=== PATIENT | male | born 1980 | race Caucasian/White ===

== ENCOUNTER 2024-12-28 06:41 | Emergency (ER) | payer OTHER, SELFPAY ==
[2024-12-28 06:42] VITALS: BP 174/106
[2024-12-28 07:00] VITALS: BMI 31.9
--- NOTE | 2024-12-28 07:00 | ED.GENMED ---
History of Present Illness
<Abi Inman, DO - Last Filed: 12/28/24 10:08>
General
Chief Complaint: Dizziness
Time Seen by Provider: 12/28/24 06:46
<Joni Astudillo MD, Resident - Last Filed: 12/28/24 10:26>
General
Source: patient and significant other
History of Present Illness
History of Present Illness:
44 year old male with a past medical history of ADHD comes to the ED due to recent history of dizziness and increased sweatiness when he woke up this morning. He states that he was having mild symptoms when he went the bed last night and that they
were much worse this morning. Patient was looking at a few old houses yesterday and was smelling 'cat poop' since visiting those houses. Patient states that he has been feeling chills and sweating and has a mild headache. He vomiting in the car
while driving to the ED and has been dry heaving for a bit since.
Past History
<Joni Astudillo MD, Resident - Last Filed: 12/28/24 10:26>
Past History
ED Past Medical History: Psychiatric (ADHD)
ED Past Surgical History: Orthopedic (Achilles)
Social History
Tobacco: Vaping
Alcohol: Occasional
Drug: None
Review of Systems
<Joni Astudillo MD, Resident - Last Filed: 12/28/24 10:26>
Review of Systems
Allergies reviewed?: Yes
Constitutional: Reports chills
EENT: Reports no symptoms
Respiratory: Reports no symptoms
Cardiac: Reports no symptoms
ABD/GI: Reports nausea and vomiting
: Reports no symptoms
Musculoskeletal: Reports no symptoms
Skin: Reports no symptoms
Neurological: Reports dizzy and headache
Endocrine: Reports no symptoms
Hematologic/Lymphatic: Reports no symptoms
Psychiatric: Reports no symptoms
Phy Exam
<Joni Astudillo MD, Resident - Last Filed: 12/28/24 10:26>
General Physical Exam
General Presentation: mild distress
General Skin: warm and dry
General Habitus: normal
General Mental: alert
General Hydration: appears well hydrated
Eye Exam
Eye Exam: PERRL and EOMI
Eye Exam General: lateral nystagmus: left (Mild)
Cardiovascular Exam
Cardiovascular Exam: regular rate/rhythm, no edema and no murmur
Pulmonary Exam
Pulmonary Exam: lungs clear, no respiratory distress, no rales, no crackles and no wheezing
Gastrointestinal Exam
Gastrointestinal Exam: normal bowel sounds, non tender, soft and non distended
Neurological Exam
Neurological Exam: alert, oriented x3, no motor deficits and no sensory deficits
Course
<Abi Inman, DO - Last Filed: 12/28/24 10:08>
Orders/Labs/Results
Orders:
Orders
12/28/24 06:58
Electrocardiogram (*1) Stat
Reason for Study: Vertigo / Dizzy
EKG- Treatment ONCE
12/28/24 06:59
Ondansetron Injectable [Zofran] 4 mg IV NOW STA
12/28/24 07:00
IV Insert/Care/Rem.- Treatment PRN
0.9% Sodium Chloride 1000 ml [Nss] 1,000 ml IV BOLUS
12/28/24 07:05
CT Head W/o Iv Contrast Urgent
Comment:
Reason For Exam: dizziness
12/28/24 07:18
Complete Blood Count/With Diff Urgent
Comprehensive Metabolic Panel Urgent
12/28/24 08:21
Physical Therapy Consult [Pt Eval And Treat] Urgent
Treatment: Vestibular
Activity Level: Out of Bed-Early Mobility
12/28/24 09:28
Meclizine [Antivert] 12.5 mg PO NOW STA
Abnormal Lab Results
12/28/24
07:18
BUN 23 H mg/dl
(9-20)
Glucose 133 H mg/dl
(70-99)
12/28/24 07:18
12/28/24 07:18
Vital Signs
Initial and Last Documented VS:
Initial Vital Signs
Temp Pulse Resp BP Pulse Ox
97.3 F 66 20 174/106 98
12/28/24 06:42 12/28/24 06:42 12/28/24 06:42 12/28/24 06:42 12/28/24 06:42
Last Documented Vital Signs
Temp Pulse Resp BP Pulse Ox
97.3 F 56 11 132/81 100
12/28/24 06:42 12/28/24 10:00 12/28/24 09:00 12/28/24 10:00 12/28/24 10:00
<Joni Astudillo MD, Resident - Last Filed: 12/28/24 10:26>
Orders/Labs/Results
Orders:
Orders
12/28/24 06:58
Electrocardiogram (*1) Stat
Reason for Study: Vertigo / Dizzy
EKG- Treatment ONCE
12/28/24 06:59
Ondansetron Injectable [Zofran] 4 mg IV NOW STA
12/28/24 07:00
IV Insert/Care/Rem.- Treatment PRN
0.9% Sodium Chloride 1000 ml [Nss] 1,000 ml IV BOLUS
12/28/24 07:05
CT Head W/o Iv Contrast Urgent
Comment:
Reason For Exam: dizziness
12/28/24 07:18
Complete Blood Count/With Diff Urgent
Comprehensive Metabolic Panel Urgent
12/28/24 08:21
Physical Therapy Consult [Pt Eval And Treat] Urgent
Treatment: Vestibular
Activity Level: Out of Bed-Early Mobility
12/28/24 09:28
Meclizine [Antivert] 12.5 mg PO NOW STA
Abnormal Lab Results
12/28/24
07:18
BUN 23 H mg/dl
(9-20)
Glucose 133 H mg/dl
(70-99)
12/28/24 07:18
12/28/24 07:18
Vital Signs
Initial and Last Documented VS:
Initial Vital Signs
Temp Pulse Resp BP Pulse Ox
97.3 F 66 20 174/106 98
12/28/24 06:42 12/28/24 06:42 12/28/24 06:42 12/28/24 06:42 12/28/24 06:42
Last Documented Vital Signs
Temp Pulse Resp BP Pulse Ox
97.3 F 56 11 132/81 100
12/28/24 06:42 12/28/24 10:00 12/28/24 09:00 12/28/24 10:00 12/28/24 10:00
<Joni Astudillo MD, Resident - Last Filed: 12/28/24 10:26>
MDM/Problems Addressed
Differential Diagnosis Includes:
Vertigo, Exposure to mold, Dehydration
MDM/Problems Addressed:
Patient comes to the ED in some moderate distress complaining of dizziness and diaphoresis.
Will get CMP, CBC to check for any electrolyte abnormalities. Will give some IVF and Zofran for supportive therapy (already is feeling better)
Will get EKG to check for any cardiac abnormalities
Will get Head CT w/o IV contrast
Most likely related to him visiting old houses yesterday and being exposed to possible mold
CBC unremarkable, EKG shows possible first degree block but unremarkable.
Patient continues to not feel well, will consult physical therapy for vestibular exercise therapy
Physical Therapy evaluated patient and state he's doing much better. Negative testing for BPPV or vertigo. Patient able to ambulate without much dizziness
Will give dose of Meclizine and discharge patient if continues to feel better
Patient feeling much better and discharged with instructions regarding his dizziness and given a prescription for Meclizine
<Joni Astudillo MD, Resident - Last Filed: 12/28/24 10:26>
*Pulse Oximetry
SaO2: 98
Oxygen Mode of Delivery: Room air
Patient hypoxic: no
*Critical Care Note
Total Time (30-74mins, 75-104mins- exclusive of procedures): Not Applicable
ED Attending Note
<Abi Inman DO - Last Filed: 12/28/24 10:08>
ED Attending Note
Patient seen and examined by attending physician: Yes
I performed the substantive portion of visit, reviewed & personally made and approve the management plan that is documented in note by myself or MAGDA.: Yes
I performed a history and physical exam of patient and discussed management with resident, I reviewed resident's note and agree with documented findings and plan of care.: Yes
ED Attending Note:
44-year-old male without significant past medical history presenting to the emergency department for dizziness. 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 He was wearing a mask and notes some strange smells,
animal feces, dust. He reports that he felt fine when he went to sleep, mild headache. When he woke up this morning, felt an acute sense of dizziness, described as spinning. Notes that he initially had double vision with associated nausea,
vomiting, diaphoresis. Denies any prior history of vertigo. Denies any injury or trauma. Denies any recent illness or fever. Denies focal weakness or sensory deficits to his extremities. Denies chest pain or difficulty breathing. Vital signs
on arrival significant for high blood pressure.
On exam, patient is resting comfortably, no acute distress. Notes that the symptoms have somewhat improved when he is now sitting. Overall benign examination. Mild nystagmus when looking toward the right, reproduction of symptoms. Otherwise
pupils equal and reactive, extraocular movements intact. Normal strength and sensation bilaterally to all extremities. Normal cerebellar testing. Unremarkable cardiac and pulmonary exam. Normal TMs bilaterally. Suspect vertiginous component to
symptoms, given examination, description of symptoms, acute onset. Lower suspicion for acute central neurologic process. Plan for laboratory analysis, EKG, therapeutics with IV fluids/Zofran/meclizine
08:40 -patient's labs are unremarkable. CT brain negative. He notes minimal improvement of his symptoms. Will consult physical therapy
09:45 -physical therapy to bedside, note reassuring examination. No specific signs for BPPV, however patient also noted that he is feeling better, ambulated safely. Ultimately feel stable for discharge with continued supportive therapy. Advised
continued oral hydration, meclizine. Return precautions communicated and patient verbalized understanding
<Joni Astudillo MD, Resident - Last Filed: 12/28/24 10:26>
-
Portions of this chart may have been created with voice recognition software.� Occasional wrong word or��sound alike� substitutions may have occurred due to the inherent limitations of voice recognition software.
Discharge Plan
Departure
Patient Disposition: Home (Routine Discharge)
Date of Disposition: 12/28/24
Time of Disposition: 10:06
Patient with high blood pressure during this ER visit?: Yes
Condition: Good
Discharge Problem:
Dizziness, nonspecific
Instructions: Dizziness, Nonvertigo, (DC), BLOOD PRESSURE
Prescriptions:
New
meclizine 25 mg tablet
25 mg PO TID 5 Days Qty: 15 0RF
Referrals:
Yiar Saenz DO [Family Provider, Family Practice]
Activity Restrictions/Additional Instructions:
You were seen in the emergency department for dizziness
You were found to have reassuring laboratory analysis and CT imaging of your brain. We suspect that you have vertigo which is a dizzy sensation that originates from the inner ear. You are prescribed meclizine. Please take as needed.
Please follow-up closely with your primary care physician.
Return to the emergency department for any worsening of your symptoms, or any development of chest pain, difficulty breathing, abdominal pain with persistent vomiting and inability to tolerate food or liquid by mouth (concern for dehydration),
weakness, headache or confusion, fever greater than 100.4, or any additional symptoms that are concerning to you.
Thank you for choosing [facility].
Interventions
Interventions:
*Risk Screen - Suicide Last Done: 12/28/24 06:42
*Neglect/Abuse Screening Last Done: 12/28/24 06:42
*ED COVID-19 Vaccine History Last Done: 12/28/24 07:00
ED- Neurological Assessment Last Done: 12/28/24 07:00
ED Swallowing Screen Last Done: 12/28/24 09:25
Discharge Date and Time
Print Language: LIBYAN
[2024-12-28] MEDS: ZOFRAN 4 MG IV (07:19)
[2024-12-28] MEDS: NSS 1000 IV (07:19)
[2024-12-28 07:33] LABS: Hematocrit 44.5 % (39.0-52.0); Hemoglobin 15.4 g/dL (13.0-18.0); Mean Corp Hgb Conc. 34.6 g/dL (33.0-37.0); Mean Corpuscular Volume 87.3 fL (80.0-94.0); Nucleated Red Blood Cells % 0 % (-); Platelet Count 262 10^3/uL (130-400); Red Cell Dist. Width 12.5 % (11.5-14.5)
[2024-12-28 07:49] LABS: ALT (SGPT) 39 U/L (0-50); AST (SGOT) 27 U/L (17-59); Albumin 4.7 g/dl (3.5-5.0); Alkaline Phosphatase 60 U/L (38-126); Blood Urea Nitrogen 23 mg/dl (9-20); Calcium 10.2 mg/dl (8.4-10.2); Carbon Dioxide 28 mmol/L (22-30); Chloride 104 mmol/L (98-107); Estimated Creatinine Clearance > 125 ml/min; Glucose 133 mg/dl (70-99); Sodium 138 mmol/L (135-145); Total Protein 7.3 g/dl (6.3-8.2); eGFR > 60.00
[2024-12-28 07:54] LABS: Potassium 4.0 mmol/L (3.5-5.1)
[2024-12-28 08:28] VITALS: BP 138/69
[2024-12-28 09:00] VITALS: BP 139/71
[2024-12-28 09:24] VITALS: BP 153/100
[2024-12-28] MEDS: ANTIVERT 12.5 MG PO (09:37)
[2024-12-28 09:40] VITALS: BP 139/71; BP 153/100; PULSE 52; O2SAT 98
[2024-12-28 10:00] VITALS: BP 132/81
== END 2024-12-28 10:25 | disposition home or self-care (01) ==
LOC: EMR 06:41
PROVIDERS: EMERGENCY PHYSICIAN Student in an Organized Health Care Education/Training Program; FAMILY PHYSICIAN Family Medicine
DX: R42 Dizziness and giddiness (principal); F90.9 Attention-deficit hyperactivity disorder, unspecified type; F17.290 Nicotine dependence, other tobacco product, uncomplicated
CPT/HCPCS: 99284; 96374; 96361; 70450; 80053; 85025; 93005